=== PATIENT | male | born 1970 | race Caucasian/White ===

== ENCOUNTER 2025-04-09 13:04 | Outpatient (OUT) | payer BC, SELFPAY ==
--- NOTE | 2025-04-09 13:14 | XR_ITS ---
[facility] [place] [id number] Patient Name: KRUNAL GREGG MRN: [id number] date: 1970 Sex: M Assigned Patient Location: [facility] Current Patient Location: [facility] Accession/Order Number: [id number] Exam Date: 04/09/2025 13:47 Report Date: 04/09/2025 13:48 At the request of: TD STRE[address] DPM Procedure: XR foot RT min 3V RIGHT ANKLE - 3 views right foot 3 views CLINICAL HISTORY: Acute right foot/ankle pain and swelling for 2 weeks. COMPARISON: None FINDINGS: Right ankle: Soft tissue swelling is present. Ankle mortise appears intact without acute bony process. Right foot: No focal soft tissue abnormality. No acute bony process. Plantar spurring. Degenerative changes involving the first MTP joint without bony erosions. XR/XR foot RT min 3V IMPRESSION: SOFT TISSUE SWELLING WITHOUT ACUTE BONY PROCESS INVOLVING THE RIGHT ANKLE OR FOOT. Impression dictated by: Malia Shelton Jr.OLukas 04/09/2025 1:48 PM Dictation Location[facility] Electronically authenticated by: [id number] Y Date: 04/09/2025 13:48
--- NOTE | 2025-04-09 13:28 | XR_ITS ---
[facility] [place] [id number] Patient Name: KRUNAL GREGG MRN: [id number] date: 1970 Sex: M Assigned Patient Location: [facility] Current Patient Location: [facility] Accession/Order Number: [id number] Exam Date: 04/09/2025 13:47 Report Date: 04/09/2025 13:48 At the request of: TD ST[address] DPM Procedure: XR foot RT min 3V RIGHT ANKLE - 3 views right foot 3 views CLINICAL HISTORY: Acute right foot/ankle pain and swelling for 2 weeks. COMPARISON: None FINDINGS: Right ankle: Soft tissue swelling is present. Ankle mortise appears intact without acute bony process. Right foot: No focal soft tissue abnormality. No acute bony process. Plantar spurring. Degenerative changes involving the first MTP joint without bony erosions. XR/XR ankle RT min 3V IMPRESSION: SOFT TISSUE SWELLING WITHOUT ACUTE BONY PROCESS INVOLVING THE RIGHT ANKLE OR FOOT. Impression dictated by: Malia Shelton Jr.OLukas 04/09/2025 1:48 PM Dictation Location[facility] Electronically authenticated by: [id number] Y Date: 04/09/2025 13:48
== END 2025-04-09 13:05 | disposition home or self-care (01) ==
PROVIDERS: Visit Provider Podiatrist Foot & Ankle Surgery
DX: M25.571 Pain in right ankle and joints of right foot (principal); M79.671 Pain in right foot; M79.89 Other specified soft tissue disorders
CPT/HCPCS: 73610; 73630